=== PATIENT | male | born 1955 | race Caucasian/White ===

== ENCOUNTER → 2018-09-26 | Day surgery (SDC) | payer BC ==
[2018-09-14 09:53] LABS: BASOPHILS # (AUTO) 0.1 (0.0-0.1); BASOPHILS % 0.6 % (0.0-1.0); EOSINOPHILS # (AUTO) 0.7 (0.0-0.4); EOSINOPHILS % 7.6 % (0.0-6.0); HEMOGLOBIN 16.9 g/dL (14.0-18.0); LYMPHOCYTES # (AUTO) 2.3 (1.0-3.2); LYMPHOCYTES % 24.9 % (18.0-39.1); MEAN CORPUSCULAR HEMOGLOBIN 31.9 pg (28-32); MEAN CORPUSCULAR HGB CONC 35.2 g/dL (31-35); MEAN CORPUSCULAR VOLUME 90.6 fL (81-99); MONOCYTES # (AUTO) 0.9 (0.2-0.8); MONOCYTES % 9.4 % (4.4-11.3); NEUTROPHILS # (AUTO) 5.3 (2.1-6.9); NEUTROPHILS % 56.9 % (38.7-80.0); PLATELET COUNT 211 x10e3/uL (140-360); RED CELL DISTRIBUTION WIDTH 13.2 % (11.7-14.4)
--- NOTE | 2018-09-14 09:59 | Diagnostic Imaging Report ---
PROCEDURE: X-RAY CHEST, TWO VIEWS COMPARISON: None. INDICATIONS: PREOPERATIVE CHEST XRAY FOR CYSTO SURGERY FINDINGS: LUNGS: No consolidations or edema. PLEURA: No effusions or pneumothorax. HEART & MEDIASTINUM: The heart is within normal size-limits. BONES & SOFT TISSUES: No acute findings. CONCLUSION: No acute thoracic abnormality. Domenico Ham D.O. Dictated by: Domenico Ham D.O. on 09/14/2018 at 10:08 Electronically approved by: Domenico Ham D.O. on 09/14/2018 at 10:08
[2018-09-14 10:23] LABS: ANION GAP 14.2 mmol/L (8-16); BLOOD UREA NITROGEN 11 mg/dL (7-26); BUN/CREATININE RATIO 12 (6-25); CALCIUM 9.4 mg/dL (8.4-10.2); CARBON DIOXIDE 25 mmol/L (22-29); CHLORIDE 105 mmol/L (98-107); CREATININE, SERUM 0.91 mg/dL (0.72-1.25); EST GLOMERULAR FILTRATION RATE > 60 ML/MIN (60-); GLUCOSE 99 mg/dL (74-118); POTASSIUM 4.2 mmol/L (3.5-5.1); SODIUM 140 mmol/L (136-145)
[2018-09-14 10:28] LABS: INR 1.01; PROTHROMBIN TIME 14.2 seconds (11.9-14.5)
[~2018-09-26] MED LIST: ASPIR 8181 MG PO; BENICAR20 MG PO; CRESTOR10 MG PO; DEXAMETHASONE SOD PHOS INJ 4 MG/ML VIAL ONE; FENTANYL CITRATE/PF 100MCG/2 ML INJ ONE; IOPAMIDOL 610MG/1ML 300 MG/ML VIAL IV ONE; LEVOFLOXACIN 500MG/D5W 100ML 100 ML IV ONE; LIDOCAINE HCL 2% LOCAL INJ 5 ML SDV VIAL INJ ONE; MELOXICAM7.5 MG PO; MIDAZOLAM HCL 2 MG/2 ML VIAL ONE; MULTI-VITAMIN1 EACH PO; ONDANSETRON HCL INJ 2 MG/ML VIAL ONE; PEPCID20 MG PO; PROPOFOL IV EMULSION 10 MG/ML 20 ML VIAL ONE; SEVOFLURANE INHAL SOLN 250 ML PEN BTL ONE; VESCEPA PO
--- OUTSIDE RECORDS SUMMARY | 2018-09-26 07:52 | XMS REPORT | Clinical Summary ---
Author Author [facility] Organization [facility] Address Unknown Phone Unavailable Care Team Providers Care Lodge Attendant Name Role Phone Jorje Glover MD PCP Allergies Comments Active Allergy Reactions Severity Noted Date Niacin 04/25/2017 Medications End Date Status Medication Sig Dispensed Refills Start Date Active omega-3 acid ethyl esters Take 1 g by 0 (LOVAZA) 1 gram capsule mouth 2 (two) times a day. Active simvastatin (ZOCOR) 20 MG Take 20 mg by 0 tablet mouth nightly. Active aspirin (ECOTRIN) 81 MG Take 81 mg by 0 enteric coated tablet mouth daily. Active cyanocobalamin 100 MCG Take 100 mcg 0 tablet by mouth daily. Active MELOXICAM ORAL Take by mouth 0 as needed. Active omeprazole (PriLOSEC) 20 Take 20 mg by 0 MG capsule mouth daily. Active Ca cmb Take by mouth 0 no.[id number]-[id number] every other (VITAMIN D-3 WITH ALOE) day. 120-1,000-10 mg-unit-mg tablet Active fenofibrate (TRICOR) 145 Take 145 mg 4 03/17/201 MG tablet by mouth once 7 daily. Active MULTIVITAMIN ORAL Take by 0 mouth. Active Problems Not on file Encounters Care Team Description Date Type Specialty Jeramy Paniagua MD Enlarged prostate with urinary obstruction 08/21/2018 Hospital Radiology Encounter Jeramy Paniagua MD Enlarged prostate with urinary obstruction (Primary Dx) 08/09/2018 Transcribe Access Orders after 09/25/2017 Family History Medical History Relation Name Comments Colon polyps Mother Relation Name Status Comments Mother Social History Date Tobacco Use Types Packs/Day Years Used Never Smoker Sex Assigned at Date Recorded Not on file Industry Job Start Date Occupation Not on file Not on file Not on file Travel End Travel History Travel Start No recent travel history available. Last Filed Vital Signs Not on file Plan of Treatment Health Maintenance Due Date Last Done Comments COLON CANCER SCREENING 2007 SHINGRIX VACCINE (1 of 2) 2007 ZOSTER VACCINE 2017 INFLUENZA VACCINE 05/30/2018 Procedures Comments Procedure Name Priority Date/Time Associated Diagnosis US PROSTATE Routine 08/21/2018 Enlarged prostate with 12:22 PM CDT urinary obstruction after 09/25/2017 Results * US Prostate (08/21/2018 12:22 PM CDT) Narrative Performed At EXAMINATION:US PROSTATE [facility] CLINICAL HISTORY:N40.1 Benign prostatic hyperplasia with lower urinary tract symptoms, N13.8 Other obstructive and reflux uropathy, N40.1 COMPARISON:None. IMPRESSION: 1.The prostate gland is heterogeneous and nodular with areas of calcification. Findings are compatible with benign prostatic hypertrophy. A simple prostatic cyst is less than 4 mm in size. No definite suspicious lesion is seen. If there is concern for neoplasm, suggest further evaluation with MRI prostate. [facility]-[id number] Procedure Note Interface, Radiology Results Incoming - 08/21/2018 2:01 PM CDT EXAMINATION: US PROSTATE CLINICAL HISTORY: N40.1 Benign prostatic hyperplasia with lower urinary tract symptoms, N13.8 Other obstructive and reflux uropathy, N40.1 COMPARISON: None. IMPRESSION: 1. The prostate gland is heterogeneous and nodular with areas of calcification. Findings are compatible with benign prostatic hypertrophy. A simple prostatic cyst is less than 4 mm in size. No definite suspicious lesion is seen. If there is concern for neoplasm, suggest further evaluation with MRI prostate. [facility]-[id number] Performing Organization Address City/State/Zipcode Phone Number [facility] [address] [place] [address] after 09/25/2017 Insurance Payer Benefit Subscriber ID Type Phone Address Plan / Group BCBS BCBS xxxxxxxxx PPO CHOICE PPO/CHRIS [employer]ER PPO Advance Directives Patient has advance care planning documents on file. For more information, plerocky e contact: Karan Lemos [address] [place] [address]
--- OUTSIDE RECORDS SUMMARY | 2018-09-26 07:52 | XMS REPORT ---
Author Author [facility] Address Unknown Phone Unavailable Care Team Providers Care Insurance Appraiser Name Role Phone Verito JERNIAGN Unavailable Unavailable Problems This patient has no known problems. Allergies, Adverse Reactions, Alerts This patient has no known allergies or adverse reactions. Medications This patient has no known medications. Results Test Description Test Time Test Comments Text Results Atomic Results Result Comments CHEST 2 VIEWS 2018-09-14 10:08:00 [place] [address] Patient Name: CARSON RUSH MR #: [id number] : 1955 Age/Sex: 63/M Req #: [id number] [facility] Physician: Ordered by: FAMILIA JERNIGAN MD Report #: [id number] Location: OR Room/Bed: Procedure: [id number] DX/CHEST 2 VIEWS Exam Date: 09/14/18 Exam Time: 0940 REPORT STATUS: Signed PROCEDURE: X-RAY CHEST, TWO VIEWS COMPARISON: None. DEYANIRA CATIONS: PREOPERATIVE CHEST XRAY FOR CYSTO SURGERY FINDINGS: LUNGS: No consolidations or edema. PLEURA: No effusions or pneumothorax. HEART MEDIASTINUM: The heart is within normal size- limits. BONES SOFT TISSUES: No acute findings. CONCLUSION: No acute thoracic abnormality. Araceli Wu D.O. Dictated by: Araceli Wu D.O. on 09/14/2018 at 10:08 Electronically approved by: Araceli Wu D.O. on 09/14/2018 at 10:08 Dictated By: ARACELI WU DO 1008 Transcribed By: MONICA on 09/14/18 1008 COPY TO: FAMILIA JERNIGAN MD
[2018-09-26 11:30] VITALS: BP 128/84
--- NOTE | 2018-09-26 14:29 | Operative Report ---
DATE OF PROCEDURE: September 26, 2018 PREOPERATIVE DIAGNOSES 1. BPH. 2. Prostatic obstruction. POSTOPERATIVE DIAGNOSES 1. BPH. 2. Prostatic obstruction. OPERATIONS 1. Cystourethroscopy. 2. Bilateral retrograde pyelogram. ENGINEERING TEST MECHANIC: Dr. Moshe Luu ANESTHETIC: General. Mr. Duckworth is a 63-year-old male who presented with the chief complaint of increasing lower urinary tract obstructive symptoms. He tells me that his stream is getting much, much weaker with interrupted stream and terminal dribbling. Physical exam showed the prostate to be about 50-60 g, firm and benign. His PSA was normal. This patient was placed on the table in the lithotomy position, and was prepped and draped in a sterile manner after satisfactory anesthesia. A #23-Bangladeshi cystoscope was used, and cystourethroscopy was performed. It was noted that the urethra was normal. The prostatic urethra was about 4 to 4.5 cm long, bilobar and occlusive. Cystoscopy was then performed using both right angle and the 4-0 oblique lens. It was noted that the bladder mucosa was normal with no evidence of gross tumor, pathology or any papillary lesions. The bladder wall, however, was moderately to markedly trabeculated with cellules and diverticula on the posterior wall. Both urethral orifices were seen and were within normal position, configuration, and efflux. Right retrograde pyelogram was then performed. Using a #8 bulb-tipped urethral catheter, inserted in the right ureteral orifice, and 5 mL of contrast material was injected. Retrograde performed was normal. Left retrograde pyelogram was performed similarly and was normal. The bladder was drained. Cystoscope removed. The patient was taken to the recovery room in satisfactory condition. Plan for this patient is to be placed on Cipro 250 mg 1 twice a day for 1 week. Ultracet tablet 1 every 6-8 hours p.r.n. and was given 15. He is to return to the office in 2 weeks when at that time will discuss all the options of Flomax versus TURP. Job#: [id number] SC
--- NOTE | 2018-10-03 11:22 | Diagnostic Imaging Report ---
PROCEDURE: X-RAY RETROGRADE PYELOGRAM COMPARISON: None. INDICATIONS: Not provided. FINDINGS: Multiple intraoperative spot images of the abdomen and pelvis were obtained. There is retrograde cannulization of both ureters with contrast injection. The calices are unremarkable. Cumulative fluoro time: Not specified Cumulative area dose product: Not specified Cumulative air kerma: Not specified CONCLUSION: 1. Retrograde pyelogram as described above. 2. Please see the full report provided by the performing physician Domenico Ham D.O. Dictated by: Domenico Ham D.O. on 10/03/2018 at 11:31 Electronically approved by: Domenico Ham D.O. on 10/03/2018 at 11:31
== END | disposition home or self-care (01) ==
LOC: OR 07:50
PROVIDERS: ATTEND Specialist
DX: N40.1 Benign prostatic hyperplasia with lower urinary tract symptoms (principal); N13.8 Other obstructive and reflux uropathy; R39.12 Poor urinary stream; N32.89 Other specified disorders of bladder; N32.3 Diverticulum of bladder; I10 Essential (primary) hypertension; Z01.810 Encounter for preprocedural cardiovascular examination; Z01.812 Encounter for preprocedural laboratory examination; Z01.818 Encounter for other preprocedural examination; Z88.8 Allergy status to other drugs, medicaments and biological substances; Z79.82 Long term (current) use of aspirin
CPT/HCPCS: 36415; 52005; 71046; 74420; 80048; 85025; 85610; 93005; C1758; J1100; J1956; J2001; J2250; J2405; J2704; Q9967